=== PATIENT | female | born 1975 | race Caucasian/White ===

== ENCOUNTER 2021-05-21 10:30 | Emergency (ER) | payer MEDICAID ==
[~2021-05-21] VITALS: Ht 160 cm; Wt 73.5 kg
[2021-05-21 10:37] VITALS: BP 143/84
--- NOTE | 2021-05-21 10:44 | NUR ---
PT AMBULATED TO BED
--- NOTE | 2021-05-21 10:52 | NUR ---
46 Y/O F BIB DAUGHTER, C/O CHEST PAIN ON R SIDE RADIATES TO R UPPER BACK FOR 2 MO. PCP DIRECTED HER TO GET A CHEST US, PT HAS REFERRAL, BUT STATES THE CLOSEST APPOINTMEMT SHE COULD GET IS IN 2 WEEKS AND WOULD LIKE TO BE SEEN SOONER. DENIES N/V/D, SOB, COUGH, FEVERS OR CHILLS. PT STATES 8/10 CONTINOUS PAIN. DENIES ANY TRAUMA OR RECENT INJURY. PMH: DENIES MED: DICLOXACILLIN 500MG ALLERGY: DENIES
--- NOTE | 2021-05-21 10:52 | NUR ---
ERMD AT BEDSIDE EXAMINING PT
--- NOTE | 2021-05-21 10:54 | NUR ---
PER ERMD 12 LEAD WAS DONE ON PT AND CAME BACK NSR AT 70 HR.
[2021-05-21] MEDS ORDERED: KETOROLAC 30 MG/ML VIAL IVP ONE (11:00)
--- NOTE | 2021-05-21 11:11 | NUR ---
BLOOD SPECIMEN RETRIEVED FROM PT AND WALKED DOWN TO LAB BY [facility]
--- NOTE | 2021-05-21 11:14 | NUR ---
PT AMBULATED TO RESTROOM, STEADY GAIT
--- NOTE | 2021-05-21 11:20 | NUR ---
XRAY AT BEDSIDE
[2021-05-21 11:42] LABS: BASOPHILS % (AUTO) 0.7 % (0.0-2.0); EOSINOPHILS % (AUTO) 0.8 % (0.0-4.0); HEMATOCRIT 39.3 % (36-48); HEMOGLOBIN 13.2 g/dL (12.0-16.0); LYMPHOCYTES # (AUTO) 1.2 K/uL (2.5-16.5); LYMPHOCYTES % (AUTO) 22.8 % (20.5-51.1); MEAN CORPUSCULAR HEMOGLOBIN 32 pg (27-31); MEAN CORPUSCULAR HGB CONC 34 g/dL (33-37); MEAN CORPUSCULAR VOLUME 94.1 fL (80-94); MONOCYTES # (AUTO) 0.5 K/uL (0.8-1.0); MONOCYTES % (AUTO) 9.1 % (1.7-9.3); NEUTROPHILS # (AUTO) 3.6 K/uL (1.8-7.7); NEUTROPHILS % (AUTO) 66.6 % (42.2-75.2); PLATELET COUNT (AUTO) 242 K/uL (140-450); RED BLOOD CELL COUNT(AUTO) 4.18 MIL/uL (4.20-5.40); WHITE BLOOD COUNT (AUTO) 5.4 K/uL (4.8-10.8)
[2021-05-21 11:48] LABS: ALBUMIN 3.5 g/dL (3.4-5.0); ANION GAP 12.2 (8-16); CARBON DIOXIDE 26.4 mmol/L (21-32); CREATININE 0.7 mg/dL (0.6-1.3); POTASSIUM 3.6 mmol/L (3.5-5.1); TOTAL BILIRUBIN 0.1 mg/dL (0.0-1.0)
--- NOTE | 2021-05-21 11:48 | NUR ---
ULTRASOUND AT BEDSIDE
[2021-05-21] MEDS ORDERED: IBUP-2213 PO (13:14)
[2021-05-21 13:25] VITALS: BP 127/66
== END 2021-05-21 13:30 | disposition home or self-care (01) ==
LOC: MED 10:30
DX: O92.6 Galactorrhea (principal); N60.01 Solitary cyst of right breast; Z79.899 Other long term (current) drug therapy
CPT/HCPCS: 36415; 71045; 76641; 80053; 81002; 81025; 84484; 85025; 85379; 93005; 96374; 99285; J1885; Q0092